=== PATIENT | male | born 1970 | race Caucasian/White ===

== ENCOUNTER → 2024-12-13 | Day surgery (SDC) | payer OTHER ==
[~2024-12-13] MED LIST: GLUCAGON FOR INJ 1 MG VIAL ONE; HYOSCYAMINE SULFATE 0.5 MG/ML INJ ONE; LIDOCAINE HCL 2% LOCAL INJ 5 ML SDV VIAL INJ ONE; MIDAZOLAM HCL 2 MG/2 ML VIAL ONE; PROPOFOL IV EMULSION 10 MG/ML 20 ML VIAL ONE
[2024-12-13] MEDS: LACTATED RINGER'S 1,000 ML ONE (13:15)
[2024-12-13] MEDS: METOCLOPRAMIDE HCL 10 MG/2ML VIAL ONE (13:37)
[2024-12-13] MEDS: FAMOTIDINE 20 MG/2 ML VIAL IV ONE (13:38)
[2024-12-13 16:25] VITALS: BP 130/81; PULSE 65; RESP 17; TEMP 97.8; O2SAT 97
== END | disposition home or self-care (01) ==
LOC: OR 12:31
PROVIDERS: ATTEND Internal Medicine Gastroenterology
DX: Z12.11 Encounter for screening for malignant neoplasm of colon (principal); D12.5 Benign neoplasm of sigmoid colon; D12.3 Benign neoplasm of transverse colon; K63.5 Polyp of colon; K62.1 Rectal polyp; K57.30 Diverticulosis of large intestine without perforation or abscess without bleeding; K64.8 Other hemorrhoids; I10 Essential (primary) hypertension; R73.03 Prediabetes; N52.9 Male erectile dysfunction, unspecified; R33.9 Retention of urine, unspecified; Z71.3 Dietary counseling and surveillance; Z68.28 Body mass index [BMI] 28.0-28.9, adult; R94.31 Abnormal electrocardiogram [ECG] [EKG]; F17.200 Nicotine dependence, unspecified, uncomplicated
CPT/HCPCS: 45381; 45385; 93005; J1308; J1610; J1980; J2003; J2250; J2704; J2765; J7121; 45378